=== PATIENT | female | born 2000 | race Caucasian/White ===

== ENCOUNTER 2021-08-04 10:22 | Emergency (ER) | payer OTHER ==
[2021-08-04 11:47] LABS: HEMOGLOBIN 15.2 gm/dl (12.3-15.3); RED BLOOD COUNT 5.07 M/UL (4.00-5.10); WHITE BLOOD COUNT 10.9 K/UL (4.5-11.0)
[2021-08-04 12:16] LABS: BUN/CREATININE RATIO 5 (0-10)
[2021-08-04] MEDS ORDERED: ZOFRAN4 MG PO (14:36)
[2021-08-04] MEDS ORDERED: AUGMENTIN 875-1 EACH PO (14:36)
== END 2021-08-04 14:50 | disposition home or self-care (01) ==
LOC: ER1 10:22
PROVIDERS: Physician Assistant
DX: K57.32 Diverticulitis of large intestine without perforation or abscess without bleeding (principal); F17.290 Nicotine dependence, other tobacco product, uncomplicated
CPT/HCPCS: 80053; 81001; 84703; 85025; 99284; Q9967

== ENCOUNTER 2022-02-19 09:42 | Emergency (ER) | payer OTHER ==
[~2022-02-19 09:42] MED LIST: AUGMENTIN 875-1 EACH PO; ZOFRAN4 MG PO
[2022-02-19] MEDS ORDERED: CYCLOBENZAPRINE10 MG PO (13:25)
== END 2022-02-19 13:38 | disposition home or self-care (01) ==
LOC: ER1 09:42
DX: M54.50 Low back pain, unspecified (principal); F17.210 Nicotine dependence, cigarettes, uncomplicated
CPT/HCPCS: 72131; 81001; 84703; 87086; 96372; 99284; J1100; J1885